=== PATIENT | female | born 1970 | race Two or more races ===

== ENCOUNTER 2020-06-08 19:19 | Outpatient (CLI) | payer MEDICAID | END 2020-06-08 19:20 | disposition home or self-care (01) | LOC: COV 19:19 | PROVIDERS: ATTEND Family Medicine | DX: R05 Cough (principal); R06.02 Shortness of breath; M79.10 Myalgia, unspecified site; R53.83 Other fatigue; R07.0 Pain in throat; R43.9 Unspecified disturbances of smell and taste; R09.81 Nasal congestion; J34.89 Other specified disorders of nose and nasal sinuses; Z20.822 Contact with and (suspected) exposure to COVID-19 ==

== ENCOUNTER 2020-06-18 17:16 | Emergency (ER) | payer MEDICAID ==
[2020-06-18] MEDS ORDERED: IBUPROFEN 600 MG TABLET PO STA (17:26)
[2020-06-18] MEDS ORDERED: oxyCODONE 5 MG TABLET PO STA (17:26)
--- NOTE | 2020-06-18 17:27 | ED Physician Documentation ---
PD HPI UPPER EXT INJURY - Stated complaint Stated Complaint: RT WRIST INJ - Chief complaint Chief Complaint: Trauma Ext - History obtained from History obtained from: Patient (She was running up a flight of stairs at home just prior to arrival and tripped and fell forward on an outstretched right hand injuring the right wrist with severe pain. No other injuries.) Review of Systems Constitutional: reports: Reviewed and negative Cardiac: reports: Reviewed and negative Respiratory: reports: Reviewed and negative PD PAST MEDICAL HISTORY - Present Medications Home Medications: Ambulatory Orders Medication Instructions Recorded Confirmed HYDROcod/ACETAM 5/325 [Honeydew 5/325] 1 - 2 tab PO Q6H PRN #10 tab 06/18/20 Ibuprofen [Motrin] 800 mg PO Q8H PRN #14 tab 06/18/20 Ondansetron Odt [Zofran] 4 mg TL Q6H PRN #10 tab 06/18/20 - Allergies Allergies/Adverse Reactions: Allergies Allergy/AdvReac Type Severity Reaction Status Date / Time morphine Allergy Respiratory Verified 06/18/20 17:21 PD ED PE NORMAL - Vitals Vital signs reviewed: Yes - General General: Alert and oriented X 3, Other (She is uncomfortable due to the wrist pain) - Neck Neck: Supple, no meningeal sign, No bony TTP - Extremities Extremities: Other (Potential deformity of the right wrist, quite tender over the right wrist without neurovascular compromise in the hand. Also some tenderness over the medial olecranon of the right elbow.) - Neuro Neuro: Alert and oriented X 3, Normal speech Results - Vitals Vitals: Vital Signs - 24 hr 06/18/20 06/18/20 17:19 18:21 Temperature 36.2 C L Heart Rate 72 75 Respiratory 16 16 Rate Blood Pressure 126/69 133/91 H O2 Saturation 95 98 Oxygen O2 Source Room air - Rads (name of study) R wrist/elbow XRs Radiology: EMP read contemporaneously (NAD) PD MEDICAL DECISION MAKING - ED course ED course: 49-year-old woman had a fall on outstretched right hand with wrist and elbow pain. Relevant x-rays were negative. Placed in a sling and a Velcro splint for comfort. Also got some Dilaudid here orally after declining oxycodone noting "it does not work for me, it is no different than taking aspirin." Departure - Departure Disposition: Home, Self Care Clinical Impression: Sprain of wrist, right Qualifiers: Encounter type: initial encounter Qualified Code(s): S63.501A - Unspecified sprain of right wrist, initial encounter Sprain of elbow, right Qualifiers: Encounter type: initial encounter Qualified Code(s): S53.401A - Unspecified sprain of right elbow, initial encounter Condition: Good Record reviewed to determine appropriate education?: Yes Instructions: ED Sprain Wrist Follow-Up: [facility] [Provider Group] - Within 1 week Prescriptions: Ibuprofen [Motrin] 800 mg PO Q8H PRN #14 tab PRN Reason: PAIN &/OR FEVER HYDROcod/ACETAM 5/325 [Honeydew 5/325] 1 - 2 tab PO Q6H PRN #10 tab PRN Reason: Pain Ondansetron Odt [Zofran] 4 mg TL Q6H PRN #10 tab PRN Reason: Nausea / Vomiting Comments: Wear the splint as needed for comfort, you can take it off though for washing and bathing etc. Also sleeping. Return if worsening. Follow-up with the orthopedics clinic in about a week for recheck, call the number listed on this form on Sunday for an appointment. Discharge Date/Time: 06/18/20 18:51
[2020-06-18] MEDS ORDERED: HYDROmorphone 2 MG TABLET PO STA (17:40)
--- NOTE | 2020-06-18 18:06 | XRAY Report ---
PROCEDURE: Wrist 4 View RT INDICATIONS: wrist/elbow inj TECHNIQUE: 4 views of the wrist were acquired. COMPARISON: None FINDINGS: Bones: No fractures or dislocations. No suspicious bony lesions. Scaphoid view: Scaphoid is intact. Soft tissues: No suspicious soft tissue calcifications. IMPRESSION: No fracture. No osseous lesion. If there are persistent symptoms or continued clinical concern for pa thology, then repeat plain film radiographs (7-10 days) or advanced imaging (CT, MR, bone scan) shoul d be considered for further evaluation. Reviewed by: Josefa Calvillo MD, PhD on 06/18/2020 6:05 PM PST Approved by: Josefa Calvillo MD, PhD on 06/18/2020 6:05 PM PST Station ID: [id number]
--- NOTE | 2020-06-18 18:06 | XRAY Report ---
PROCEDURE: Elbow 3 View RT INDICATIONS: wrist/elbow inj TECHNIQUE: 3 views of the elbow were acquired. COMPARISON: None FINDINGS: Bones: No fractures or dislocations. No suspicious bony lesions. Soft tissues: No elbow joint effusion. No suspicious soft tissue calcifications. IMPRESSION: No fracture. No osseous lesion. If there are persistent symptoms or continued clinical concern for pa thology, then repeat plain film radiographs (7-10 days) or advanced imaging (CT, MR, bone scan) shoul d be considered for further evaluation. Reviewed by: Josefa Calvillo MD, PhD on 06/18/2020 6:04 PM PST Approved by: Josefa Calvillo MD, PhD on 06/18/2020 6:04 PM PST Station ID: [id number]
[2020-06-18] MEDS ORDERED: ONDANSETRON ODT 4 MG TABLET TL STA (18:13)
[2020-06-18 18:23] VITALS: BP 133/91
== END 2020-06-18 18:51 | disposition home or self-care (01) ==
LOC: ED 17:16
DX: S63.501A Unspecified sprain of right wrist, initial encounter (principal); S53.401A Unspecified sprain of right elbow, initial encounter; W10.9XXA Fall (on) (from) unspecified stairs and steps, initial encounter; Y93.01 Activity, walking, marching and hiking; Y92.009 Unspecified place in unspecified non-institutional (private) residence as the place of occurrence of the external cause
CPT/HCPCS: 73080; 73110; 99283; 99284; A9270; Q0162

== ENCOUNTER 2020-07-02 08:00 | Outpatient (CLI) | payer OTHER, MEDICAID ==
--- NOTE | 2020-07-02 16:23 | XRAY Report ---
PROCEDURE: Wrist 4 View RT INDICATIONS: RIGHT WRIST PAIN TECHNIQUE: 4 views of the wrist were acquired. COMPARISON: 06/18/2020 FINDINGS: No fracture. Scattered subchondral sclerosis and spurring. Anatomic alignment. Soft tissues: No suspicious soft tissue calcifications. IMPRESSION: No fracture identified. No evidence of occult fracture. If the patient's pain or other symptoms persi st, consider further evaluation with MRI. Reviewed by: Darian Amador MD on 07/02/2020 4:22 PM PST Approved by: Darian Amador MD on 07/02/2020 4:22 PM PST Station ID: [id number]
== END 2020-07-02 23:59 | disposition home or self-care (01) ==
LOC: DI.N 08:00
PROVIDERS: ATTEND Physician Assistant
DX: M25.531 Pain in right wrist (principal); R56.9 Unspecified convulsions; N95.1 Menopausal and female climacteric states; G43.909 Migraine, unspecified, not intractable, without status migrainosus; F33.9 Major depressive disorder, recurrent, unspecified; F41.1 Generalized anxiety disorder; Z87.42 Personal history of other diseases of the female genital tract; Z87.11 Personal history of peptic ulcer disease; Z86.2 Personal history of diseases of the blood and blood-forming organs and certain disorders involving the immune mechanism; Z85.41 Personal history of malignant neoplasm of cervix uteri; Z80.42 Family history of malignant neoplasm of prostate; Z80.52 Family history of malignant neoplasm of bladder; Z83.71 Family history of colonic polyps
CPT/HCPCS: 36415; 81599; 82306; 82670; 83001; 83002; 84144; 84146; 84443; 85025

== ENCOUNTER 2020-07-02 14:37 | Outpatient (CLI) | payer OTHER, MEDICAID ==
[2020-07-02 18:18] LABS: BASOPHILS % (AUTO) 0.6 %; EOSINOPHILS # (AUTO) 0.1 10^3/uL (0.0-0.7); EOSINOPHILS % (AUTO) 2.3 %; HCT - HEMATOCRIT 38.8 % (37.0-47.0); HGB - HEMOGLOBIN 11.9 g/dL (12.0-16.0); LYMPHOCYTES # (AUTO) 1.6 10^3/uL (1.5-3.5); LYMPHOCYTES % (AUTO) 31.3 %; MEAN CORPUSCULAR HEMOGLOBIN 26.5 pg (27.0-31.0); MEAN CORPUSCULAR HGB CONC 30.7 g/dL (32.0-36.0); MEAN CORPUSCULAR VOLUME 86.4 fL (81.0-99.0); MEAN PLATELET VOLUME 10.6 fL (7.9-10.8); MONOCYTES # (AUTO) 0.3 10^3/uL (0.0-1.0); MONOCYTES % (AUTO) 5.4 %; NEUTROPHILS # (AUTO) 3.1 10^3/uL (1.5-6.6); NEUTROPHILS % (AUTO) 60.4 %; PLT - PLATELET COUNT 333 10^3/uL (130-450); RED BLOOD COUNT 4.49 10^6/uL (4.20-5.40); RED CELL DISTRIBUTION WIDTH 15.7 % (12.0-15.0); WHITE BLOOD COUNT 5.2 x10^3/uL (4.8-10.8)
[2020-07-02 18:54] LABS: THYROID STIMULATING HORMONE 1.95 uIU/mL (0.34-5.60)
[2020-07-02 19:00] LABS: PROLACTIN 4.61 ng/mL
[2020-07-02 19:22] LABS: FOLLICLE STIMULATING HORMONE 69.74 mIU/mL
[2020-07-02 19:23] LABS: LUTEINIZING HORMONE 31.62 mIU/mL
[2020-07-03 05:11] LABS: ESTRADIOL <15 pg/mL; PROGESTERONE <0.5 ng/mL
== END 2020-07-02 14:38 | disposition home or self-care (01) ==
LOC: LAB.N 14:37
PROVIDERS: ATTEND Physician Assistant
DX: R56.9 Unspecified convulsions (principal); N95.1 Menopausal and female climacteric states; Z78.0 Asymptomatic menopausal state; G43.909 Migraine, unspecified, not intractable, without status migrainosus; F33.9 Major depressive disorder, recurrent, unspecified; F41.1 Generalized anxiety disorder; Z85.41 Personal history of malignant neoplasm of cervix uteri; Z80.42 Family history of malignant neoplasm of prostate; Z80.52 Family history of malignant neoplasm of bladder; Z83.71 Family history of colonic polyps; Z87.42 Personal history of other diseases of the female genital tract; Z87.11 Personal history of peptic ulcer disease; Z86.2 Personal history of diseases of the blood and blood-forming organs and certain disorders involving the immune mechanism
CPT/HCPCS: 36415; 81599; 82306; 82670; 83001; 83002; 84144; 84146; 84443; 85025

== ENCOUNTER 2020-07-08 06:38 | Day surgery (SDC) | payer OTHER, MEDICAID ==
[2020-07-08] MEDS ORDERED: LACTATED RINGERS 1,000 ML IV ONE ×2 (07:12→09:22)
--- NOTE | 2020-07-08 08:55 | ANESTHESIA ---
Pre-Anesthesia VS, & Labs - Diagnosis screening colonoscopy - Procedure colonoscopy Vital Signs: Temp Pulse Resp BP Pulse Ox 36.3 C L 77 16 149/99 H 99 07/08/20 06:45 07/08/20 06:45 07/08/20 06:45 07/08/20 06:45 07/08/20 06:45 Height: 5 ft 1 in Weight (kg): 69.2 kg Body Mass Index: 28.8 BMI Classification: Overweight - NPO >8 hours - Is Patient ?: No Home Medications and Allergies Home Medications: Ambulatory Orders Fluoxetine HCl [Prozac] 30 mg PO DAILY 07/08/20 SUMAtriptan [Imitrex] 25 mg PO PRN PRN 07/08/20 Trazodone HCl 50 mg PO PRN PRN 07/08/20 Fluoxetine HCl [Prozac] 30 mg PO DAILY 07/08/20 SUMAtriptan [Imitrex] 25 mg PO PRN PRN 07/08/20 Trazodone HCl 50 mg PO PRN PRN 07/08/20 Allergies/Adverse Reactions: Allergies Allergy/AdvReac Type Severity Reaction Status Date / Time morphine Allergy Respiratory Verified 06/18/20 17:21 Anes History & Medical History - Anesthetic History Anesthesia Complications: reports: No previous complications - Medical History Cardiovascular: reports: None Pulmonary: reports: None Gastrointestinal: reports: Ulcers Urinary: reports: None Musculoskeletal: reports: Fatigue Endocrine/Autoimmune: reports: None Skin: reports: None - Surgical History General: reports: Cholecystectomy, Gastric surgery Gynecologic: reports: section, Hysterectomy, LEEP (Cervical surgery) Exam General: Alert Dental: WNL Mouth Opening: Greater than 4 Fingerbreadths Mallampati classification: II Thyromental Distance: greater than 6 cm Respiratory: Lungs clear Cardiovascular: Regular rate, Normal S1, Normal S2 Plan Anesthesia Type: Total IV Consent for Procedure(s) Verified and Reviewed: Yes Code Status: Attempt Resuscitation ASA classification: 2-Mild systemic disease Is this case an emergency?: No
[2020-07-08] MEDS ORDERED: LACTATED RINGERS 100 ML IV ONE (09:00)
[2020-07-08] MEDS ORDERED: ONDANSETRON 4 MG/2 ML VIAL ONE (09:17)
[2020-07-08] MEDS ORDERED: ACETAMINOPHEN 1,000 MG/100 ML 100 ML IV ONE ×2 (09:36→09:52)
[2020-07-08] MEDS ORDERED: METOCLOPRAMIDE 10 MG/2 ML VIAL ONE (09:38)
[2020-07-08 09:56] VITALS: BP 144/83
--- NOTE | 2020-07-08 15:01 | ANESTHESIA POST OP EVALUATION ---
Anesthesia Post Eval - Post Anesthesia Eval Vitals: Last Vital Signs Temp 37.3 C 07/08/20 09:55 Pulse 75 07/08/20 09:55 Resp 18 07/08/20 09:55 BP 144/83 H 07/08/20 09:55 Pulse Ox 97 07/08/20 09:55 CV Function Including HR & BP: positive: Stable Pain Control: positive: Satisfactory Nausea & Vomiting: positive: Negative Mental Status: positive: Patient Participates Respiratory Status: Airway Patent Hydration Status: Satisfactory Anesthesia Complications: positive: None
== END 2020-07-08 06:39 | disposition home or self-care (01) ==
LOC: SDS 06:38
PROVIDERS: ATTEND Surgery
DX: Z12.11 Encounter for screening for malignant neoplasm of colon (principal); Z80.0 Family history of malignant neoplasm of digestive organs; K57.30 Diverticulosis of large intestine without perforation or abscess without bleeding; F32.9 Major depressive disorder, single episode, unspecified; F41.9 Anxiety disorder, unspecified; G43.909 Migraine, unspecified, not intractable, without status migrainosus; E66.3 Overweight; Z68.28 Body mass index [BMI] 28.0-28.9, adult; Z79.899 Other long term (current) drug therapy; Z87.11 Personal history of peptic ulcer disease
CPT/HCPCS: 45378; J0131; J2765; J7120

== ENCOUNTER 2020-08-10 20:14 | Emergency (ER) | payer OTHER, MEDICAID ==
--- OUTSIDE RECORDS SUMMARY | 2020-08-10 20:18 | EXTERNAL MEDICAL SUMMARY RPT | Continuity of Care Document ---
:1970 Demographics Phone Unavailable Preferred Language Unknown Marital Status Unknown Mormon Affiliation Unknown Race Unknown Ethnic Group Unknown Author Organization [facility] Address [address] [phone] Phone Social History date description facility [phone]
--- OUTSIDE RECORDS SUMMARY | 2020-08-10 20:23 | EXTERNAL MEDICAL SUMMARY RPT | Continuity of Care Document ---
:1970 Demographics Phone Unavailable Preferred Language Unknown Marital Status Unknown Congregation Affiliation Unknown Race Unknown Ethnic Group Unknown Author Organization [facility] Address [address] [phone] Phone Social History date description facility [phone]
[2020-08-10 20:26] VITALS: BP 136/81
[2020-08-10] MEDS ORDERED: CHERRY SYRUP 10 ML UDC PO ONE (20:34)
[2020-08-10] MEDS ORDERED: DEXAMETHASONE 10 MG/ML VIAL PO STA (20:34)
--- NOTE | 2020-08-10 20:37 | ED Physician Documentation ---
History of Present Illness - Stated complaint Stated Complaint: EYE SWELLING - Chief complaint Chief Complaint: Heent - Additonal information Additional information: 49-year-old female presents to the emergency department for evaluation of 3 days redness and swelling under both of her eyes. She reports that she wakes up in the eyes are puffy and red. She endorses some generalized pruritus. No swelling of the upper lids. No pain with ocular movements. No recent cough cold or congestion. She has tried taking cetirizine and Benadryl to see if it would help with the redness and swelling but it has not. No new soaps lotions or face wash. She reports using a hypoallergenic face wash. She does have false eyelashes in the upper lids that were placed about 1 week ago and a glue was used. She has had this done many times in the past without reaction. No tongue or lip swelling. No chest pain or shortness of air. No dysphonia. No difficulty swallowing. Review of Systems Constitutional: denies: Fever, Chills Eyes: reports: Other (Swelling and erythema bilateral lower eyelids) Ears: reports: Reviewed and negative Nose: reports: Reviewed and negative Throat: reports: Reviewed and negative Cardiac: reports: Reviewed and negative Respiratory: reports: Reviewed and negative GI: reports: Reviewed and negative : reports: Reviewed and negative Skin: reports: Reviewed and negative PD PAST MEDICAL HISTORY - Past Medical History Past Medical History: Yes Cardiovascular: None Respiratory: None Neuro: None Endocrine/Autoimmune: None GI: Ulcers TELEVISION DIRECTOR: None : None HEENT: None Psych: Depression, Anxiety Musculoskeletal: Fatigue Derm: None - Past Surgical History Past Surgical History: Yes General: Cholecystectomy, Gastric surgery /TELEVISION DIRECTOR: section, Hysterectomy, LEEP (Cervical surgery) - Present Medications Home Medications: Ambulatory Orders Medication Instructions Recorded Confirmed Fluoxetine HCl [Prozac] 40 mg PO DAILY 07/08/20 08/10/20 - Allergies Allergies/Adverse Reactions: Allergies Allergy/AdvReac Type Severity Reaction Status Date / Time morphine Allergy Respiratory Verified 08/10/20 20:26 - Social History Does the pt smoke?: No Smoking Status: Never smoker Does the pt drink ETOH?: No Does the pt have substance abuse?: No - Immunizations Immunizations are current?: Yes - POLST Patient has POLST: No PD ED PE EXPANDED - General General: Alert, No acute distress, Well developed/nourished - HEENT HEENT: Atraumatic, PERRL, Moist mucous membranes, Pharynx normal, Other (Mild swelling and scant erythema bilateral lower eyelids. Extraocular movements intact. No eye pain with movement. No tenderness with palpation of either orbit.). No: Right frontal sinus TTP, Left frontal sinus TTP, Right maxillary sinus TTP, Left maxillary sinus TTP, Nasal congestion, Tonsillar exudate, Soft palate petecchiae, Dentition normal, Dental decay - Neck Neck: Supple w/out meningeal sx, No tenderness. No: Adenopathy - Cardiac Cardiac: Regular Rate, Radial strong equal, Pedal strong equal, Cap refill < 2 sec - Respiratory Respiratory: Clear to ausultation cuauhtemoc. No: Distress, Labored - Abdomen Abdomen: Normal Bowel sounds. No: Tender to palpation - Neuro Neuro: Alert and Oriented X 3, CNII-XII intact - GCS Eye Opening: Spontaneous Motor: Obeys Commands Verbal: Oriented Total: 15 Results - Vitals Vitals: Vital Signs - 24 hr 08/10/20 20:23 Temperature 36.4 C L Heart Rate 65 Respiratory 16 Rate Blood Pressure 136/81 H O2 Saturation 100 Oxygen O2 Source Room air PD MEDICAL DECISION MAKING - ED course Complexity details: re-evaluated patient, d/w patient ED course: 49-year-old female presents the emergency department for evaluation of 3 days bilateral lower eyelid swelling and very scant erythema with some associated pruritus. Failure to resolve despite taking cetirizine and Benadryl at home. On exam there is no cellulitis. It is not painful and there is no induration. I do suspect a mild allergic reaction. Patient was given a one-time dose of Decadron here in the emergency department and will be advised to continue with the Benadryl and cetirizine as an outpatient. emergent return precautiosn discussed Departure - Departure Disposition: 01 Home, Self Care Clinical Impression: Allergic reaction Qualifiers: Encounter type: initial encounter Qualified Code(s): T78.40XA - Allergy, unspecified, initial encounter Condition: Stable Record reviewed to determine appropriate education?: Yes Comments: You were seen in the emergency department today for swelling under both your eyelids. This is most likely a mild allergic reaction. I do recommend that you continue to take the cetirizine and Benadryl twice daily at home. You were given a one-time dose of a steroid called Decadron today in the emergency department that should help with the swelling over the next 12 to 48 hours. Please continue with the ice packs. If at any point you develop pain, swelling in the eyes it prevents you from opening the eyes fully, have pain when moving your eyes or develop any fevers please return immediately to the ER. I recommend that you discuss this ED visit with your primary care provider as soon as possible.
== END 2020-08-10 20:46 | disposition home or self-care (01) ==
LOC: ED 20:14
DX: T78.40XA Allergy, unspecified, initial encounter (principal)
CPT/HCPCS: 99282; 99284; A9270

== ENCOUNTER 2021-01-24 10:00 | Outpatient (CLI) | payer MEDICAID, OTHER | END 2021-01-24 23:59 | disposition home or self-care (01) | LOC: LAB.N 10:00 | PROVIDERS: ATTEND Physician Assistant Medical | DX: R05 Cough (principal); Z20.822 Contact with and (suspected) exposure to COVID-19 ==

== ENCOUNTER 2021-05-30 10:09 | Emergency (ER) | payer MEDICAID, OTHER ==
--- NOTE | 2021-05-30 11:05 | ED Physician Documentation ---
History of Present Illness - Stated complaint Stated Complaint: RT EAR PAIN - Chief complaint Chief Complaint: Heent - History obtained from History obtained from: Patient - Additonal information Additional information: The patient comes to the emergency department chief complaint of right ear pain for the last 4 days. She states that she has a history of recurrent right ear infections and has been on antibiotics many times for this. She was seen in the walk-in clinic 2 days ago and States they told her she may have otitis externa or she may have a ruptured tympanic membrane. They could not be sure she states, so she was put on both oral and topical antibiotics. However, the patient states she has not been using the eardrops. She states she has had some residue on her pillow every morning. The patient states she is having a lot of pain and it radiates into her right mandible as well as inferior to her ear and down into the side of her neck. No injury. She states she cannot hear very well out of the ear. No fevers; she states she is running "hot for her" which is in the "high 98's". No other complaints at this time. Review of Systems Ten Systems: 10 systems reviewed and negative Constitutional: reports: Reviewed and negative. denies: Fever, Chills Eyes: reports: Reviewed and negative Ears: reports: Reviewed and negative Nose: reports: Reviewed and negative Throat: reports: Reviewed and negative Cardiac: reports: Reviewed and negative Respiratory: reports: Reviewed and negative GI: reports: Reviewed and negative : reports: Reviewed and negative Skin: reports: Reviewed and negative Musculoskeletal: reports: Reviewed and negative Neurologic: reports: Reviewed and negative Psychiatric: reports: Reviewed and negative Endocrine: reports: Reviewed and negative Immunocompromised: reports: Reviewed and negative PD PAST MEDICAL HISTORY - Past Medical History Cardiovascular: None Respiratory: None Neuro: None Endocrine/Autoimmune: None GI: Ulcers RUBY DEVELOPER: None : None HEENT: None Psych: Depression, Anxiety Musculoskeletal: Fatigue Derm: None - Past Surgical History Past Surgical History: Yes General: Cholecystectomy, Gastric surgery /RUBY DEVELOPER: section, Hysterectomy, LEEP (Cervical surgery) - Present Medications Home Medications: Ambulatory Orders Medication Instructions Recorded Confirmed Fluoxetine HCl [Prozac] 40 mg PO DAILY 07/08/20 08/10/20 HYDROcod/ACETAM 5/325 [Alpine 5/325] 1 - 2 tablet PO Q6H PRN #14 tablet 05/30/21 Ondansetron Odt [Zofran] 4 mg TL Q6H PRN #10 tablet 05/30/21 - Allergies Allergies/Adverse Reactions: Allergies Allergy/AdvReac Type Severity Reaction Status Date / Time morphine Allergy Respiratory Verified 05/30/21 10:19 - Social History Does the pt smoke?: No Smoking Status: Never smoker Does the pt drink ETOH?: No Does the pt have substance abuse?: No - Immunizations Immunizations are current?: Yes - POLST Patient has POLST: No PD ED PE NORMAL - Vitals Vital signs reviewed: Yes - General General: Alert and oriented X 3, No acute distress, Well developed/nourished - HEENT HEENT: Atraumatic, PERRL, EOMI, Moist mucous membranes, Other - Cardiac Cardiac: RRR, No murmur - Respiratory Respiratory: Clear bilaterally - Abdomen Abdomen: Normal bowel sounds, Soft, Non tender, Non distended - Derm Derm: Warm and dry - Extremities Extremities: No deformity - Neuro Neuro: Alert and oriented X 3 - Psych Psych: Normal mood, Normal affect PD ED PE EXPANDED - Free text exam Free text exam: Ear exam: External auditory canal normal on right. No edema, sloughing, exudate, or discharge. No debris. Tympanic membrane is intact without rupture and is nonerythematous. There is no bulging, thickening, loss of cone of light, or distortion of any kind. There does appear to be some fluid behind the TM. No erythema or lymphadenopathy surrounding the ear. No mass in the neck. Mild tenderness over the mastoids. No edema of the gingiva. No dental laxity or fracture. Full range of motion of TMJ on the right without clicking. No facial swelling. No erythema or induration of the face or anywhere around the ear. Results - Vitals Vitals: Vital Signs - 24 hr 05/30/21 05/30/21 10:14 12:53 Temperature 36.8 C 36.8 C Heart Rate 73 70 Respiratory 18 16 Rate Blood Pressure 158/110 H 130/90 H O2 Saturation 97 98 Oxygen O2 Source Room air - Rads (name of study) Head CT Radiology: Final report received, EMP read indepedently, See rad report (Negative) PD MEDICAL DECISION MAKING - ED course Complexity details: reviewed results, re-evaluated patient, considered differential, d/w patient ED course: The patient had requested IV antibiotics and I stated to her that at this point, I do not find evidence of infection at all, and certainly not when requiring IV antibiotics. I cannot speak for what the practitioner of the walk-in clinic saw a couple of days ago, but at this point in time, there is no evidence of infection grossly on my exam. I have sent her for a CT to take a look at her mastoids, but I would code any mass or lymphadenopathy or any other evidence of anything to explain the degree of pain and tenderness the patient has. The patient was found to be feeling a little better after symptomatic treatment. Her CT Had was unremarkable, and I felt she was stable for discharge. We have discussed that she will continue the antibiotics until done with the course. She has prescriptions for Zofran and hydrocodone that I have sent to the pharmacy for her, which she may use for symptomatic treatment. We have discussed the need for follow-up and the usual indications for return. Departure - Departure Disposition: 01 Home, Self Care Clinical Impression: Acute otalgia Qualifiers: Laterality: right Qualified Code(s): H92.01 - Otalgia, right ear Condition: Stable Instructions: ED Otitis Media Serous Adult Prescriptions: HYDROcod/ACETAM 5/325 [Alpine 5/325] 1 - 2 tablet PO Q6H PRN #14 tablet PRN Reason: Pain Ondansetron Odt [Zofran] 4 mg TL Q6H PRN #10 tablet PRN Reason: Nausea / Vomiting Comments: There is no evidence of infection whatsoever in your ear, either in the external canal or the middle ear. You do have some fluid behind your eardrum, and this may be exerting some pressure on the eardrum, which can cause pain, sometimes even severely so. Your CT scan looks good. There is no indication for IV antibiotics at this time. Since you are already on oral antibiotics, we will have you finish the course, but at this point in time either an infection that you did have is getting better, or there is no infection at all. Please follow- up with your primary care physician to discuss referral to the ear nose throat specialist if you continue to have ear pain without a clear-cut cause. You may take the medication for nausea and pain as needed, in the meantime, to help your symptoms. Your prescriptions have been electronically transmitted to [facility] pharmacy in [place]. Discharge Date/Time: 05/30/21 12:53
[2021-05-30] MEDS: HYDROcod/ACETAM 5/325 MG TABLET PO STA (11:26)
[2021-05-30] MEDS: ONDANSETRON 4 MG/2 ML VIAL IM STA (11:26)
[2021-05-30] MEDS: KETOROLAC 60 MG/2 ML VIAL IM STA (11:26)
[2021-05-30] MEDS: predniSONE 20 MG TABLET PO STA (11:27)
--- NOTE | 2021-05-30 12:04 | CT Report ---
PROCEDURE: HEAD WO INDICATIONS: Mastoid pain/tenderness TECHNIQUE: Noncontrast 4.5 mm thick angled axial sections acquired from the foramen magnum to the vertex. For r adiation dose reduction, the following was used: automated exposure control, adjustment of mA and/or kV according to patient size. COMPARISON: None. FINDINGS: Image quality: Excellent. CSF spaces: Basal cisterns are patent. No extra-axial fluid collections. Ventricles are normal in size and shape. Brain: No midline shift. No intracranial masses or hemorrhage. Capps-white matter interface is norm al. Skull and face: Calvarium and visualized facial bones are intact, without suspicious lesions. Sinuses: Visualized portions of the mastoid air cells are clear (portion of the inferior left mastoid tip is excluded from the [id number]. No soft tissue inflammatory changes surrounding the visualiz ed portions of the mastoids. Paranasal sinuses are clear. IMPRESSION: No acute intracranial finding. No unenhanced CT findings of mastoiditis. Reviewed by: Kin Diaz MD on 05/30/2021 12:03 PM PST Approved by: Kin Diaz MD on 05/30/2021 12:03 PM PST Station ID: [id number]
[2021-05-30 12:54] VITALS: BP 130/90
== END 2021-05-30 12:53 | disposition home or self-care (01) ==
LOC: ED 10:09
DX: H92.01 Otalgia, right ear (principal)
CPT/HCPCS: 70450; 96372; 99283; 99284; J7512

== ENCOUNTER 2021-09-09 09:46 | Outpatient (CLI) | payer MEDICAID, OTHER ==
[2021-09-09 11:48] LABS: BASOPHILS % (AUTO) 0.3 %; EOSINOPHILS # (AUTO) 0.1 10^3/uL (0.0-0.7); EOSINOPHILS % (AUTO) 1.9 %; HCT - HEMATOCRIT 35.1 % (37.0-47.0); HGB - HEMOGLOBIN 10.5 g/dL (12.0-16.0); LYMPHOCYTES # (AUTO) 1.6 10^3/uL (1.5-3.5); LYMPHOCYTES % (AUTO) 27.5 %; MEAN CORPUSCULAR HEMOGLOBIN 24.1 pg (27.0-31.0); MEAN CORPUSCULAR HGB CONC 29.9 g/dL (32.0-36.0); MEAN CORPUSCULAR VOLUME 80.5 fL (81.0-99.0); MONOCYTES # (AUTO) 0.4 10^3/uL (0.0-1.0); MONOCYTES % (AUTO) 7.2 %; NEUTROPHILS # (AUTO) 3.7 10^3/uL (1.5-6.6); NEUTROPHILS % (AUTO) 62.6 %; PLT - PLATELET COUNT 397 10^3/uL (130-450); RED BLOOD COUNT 4.36 10^6/uL (4.20-5.40); WHITE BLOOD COUNT 5.9 x10^3/uL (4.8-10.8)
[2021-09-09 12:28] LABS: % IRON SATURATION 6 % (20-50); IRON 26 ug/dL (28-170); TOTAL IRON BINDING CAPACITY 470 ug/dL (250-450); TRANSFERRIN 336 mg/dL (192-382)
[2021-09-09 12:35] LABS: FERRITIN 4.4 ng/mL (11.0-306.8)
[2021-09-09 12:39] LABS: FOLATE 14.18 ng/mL (5.90 - >24.8)
== END 2021-09-09 09:47 | disposition home or self-care (01) ==
LOC: LAB.N 09:46
PROVIDERS: ATTEND Registered Nurse
DX: G25.81 Restless legs syndrome (principal)
CPT/HCPCS: 36415; 82607; 82728; 82746; 83540; 84466; 85025

== ENCOUNTER 2021-10-04 08:00 | Outpatient (CLI) | payer OTHER, MEDICAID ==
--- NOTE | 2021-10-05 10:38 | XRAY Report ---
PROCEDURE: Lumbar Spine 2 View INDICATIONS: STRAIN OF MUSCLE, FASCIA, AND TENDON OF LOWER BACK TECHNIQUE: 3 views of the lumbar spine were acquired. COMPARISON: None. FINDINGS: Bones: 5 [id number] vertebrae are present. There is normal bony alignment. No vertebral body compression fractures. No suspicious bony lesions. Disc space narrowing and hypertrophic facet join ts noted in the lower lumbar spine. Grade 2 anterior spinal listhesis present at L4-5. Soft tissues: Overlying bowel gas pattern is normal. No suspicious soft tissue calcifications. Melvin gical clips present in the right upper quadrant IMPRESSION: 1. Moderate degenerative disc disease and arthropathy lower lumbar spine 2. Grade 2 anterior spinal listhesis L4-5 Reviewed by: Colten Arevalo MD on 10/04/2021 5:01 PM CHADD Approved by: Colten Arevalo MD on 10/04/2021 5:01 PM CHADD Station ID: [id number]
== END 2021-10-04 23:59 | disposition home or self-care (01) ==
LOC: DI.N 08:00
PROVIDERS: ATTEND Physician Assistant
DX: S39.012A Strain of muscle, fascia and tendon of lower back, initial encounter (principal); M47.816 Spondylosis without myelopathy or radiculopathy, lumbar region; M43.16 Spondylolisthesis, lumbar region

== ENCOUNTER 2021-10-18 07:54 | Emergency (ER) | payer OTHER, MEDICAID ==
--- NOTE | 2021-10-18 08:09 | ED Physician Documentation ---
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 Has pain with movment and palpation. Seen at walk in with lumbar xrays that were normal. Rx with diclofenac and then Meloxicam without much improvement. Had Robaxin added as well.), Still present Location: Lower (lumbar/sacral area) Quality: Pain, Sharp Associated symptoms: No: Fever, Weakness, Numbness, Incontinent of urine Improves with: Rest. No: Meds Worsened by: Movement, Palpation Contributing factors: Twisting, Trauma Similar symptoms before: Has not had sx before Recently seen: Clinic (walk in 2 weeks ago) Review of Systems Constitutional: denies: Fever, Chills Nose: denies: Rhinorrhea / runny nose, Congestion Throat: denies: Sore throat Respiratory: denies: Cough GI: denies: Abdominal Pain, Nausea, Vomiting, Constipation, Diarrhea : denies: Dysuria, Incontinent Skin: denies: Abrasion (s), Laceration (s) Neurologic: denies: Focal weakness, Numbness PD PAST MEDICAL HISTORY - Past Medical History Past Medical History: Yes Cardiovascular: None Respiratory: None Neuro: Migraines Endocrine/Autoimmune: None GI: Ulcers, 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 HEENT: None Psych: Depression, Anxiety Musculoskeletal: Fatigue Derm: Eczema - Past Surgical History Past Surgical History: Yes General: Cholecystectomy, Gastric surgery /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 AND 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: section, Hysterectomy, LEEP (Cervical surgery) - Present Medications Home Medications: Ambulatory Orders Medication Instructions Recorded Confirmed Cetirizine [ZyrTEC] 10 mg PO BID #20 tablet 10/18/21 Meloxicam [Mobic] 7.5 mg PO BID 10 Days #14 tablet 10/18/21 Meloxicam, Submicronized 15 mg PO DAILY PRN 10/18/21 10/18/21 [Meloxicam] oxyCODONE [Roxicodone] 5 mg PO Q6H PRN #15 tablet 10/18/21 - Allergies Allergies/Adverse Reactions: Allergies Allergy/AdvReac Type Severity Reaction Status Date / Time morphine Allergy Respiratory Verified 10/18/21 08:00 - Social History Does the pt smoke?: No Smoking Status: Never smoker Does the pt drink ETOH?: No Does the pt have substance abuse?: No - Immunizations Immunizations are current?: Yes - POLST Patient has POLST: No PD ED PE NORMAL - Vitals Vital signs reviewed: Yes - General General: Alert and oriented X 3, Well developed/nourished, Other (appears in pain with low back movement and walking. ) - Abdomen Abdomen: Soft, Non tender - Back Back: No CVA TTP, No spinal TTP, Other (she is not tender lumbar but is actually tender to percussiona nd palpation at lower to mid sacral area. No redness. No rash. ) - Derm Derm: Normal color, Warm and dry, No rash Results - Vitals Vitals: Vital Signs - 24 hr 10/18/21 10/18/21 10/18/21 08:02 08:17 10:51 Temperature 36.6 C Heart Rate 76 75 80 Respiratory 18 18 14 Rate Blood Pressure 142/98 H 147/76 H 129/79 O2 Saturation 99 99 99 Oxygen O2 Source Room air - Rads (name of study) pelvic CT Radiology: Prelim report reviewed (age indeterminate sacral fracture, minimally displaced. ), See rad report PD MEDICAL DECISION MAKING - ED course Complexity details: reviewed results (recent lumbar xray was okay with just Gr 2 spondylo at L4-5. No fractures. Her pain is more at mid to lower sacral area though, so will get Pelvic CT. This showed sacral fracture. ), considered differential (fall with injury to sacral area. Had had lumbar xrays normal (essentially with Gr 2 spondyl at L4-5, so not consequential). Did not have sacral imaging. Given persistent degree of pain 2 weeks later, opted for pelvic imaging, which showed sacral fracture. ), d/w patient Departure - Departure Disposition: 01 Home, Self Care Clinical Impression: Accidental fall, Sacral fracture, closed Condition: Stable Record reviewed to determine appropriate education?: Yes Instructions: ED Fx Pelvis Follow-Up: Dinora Ford ARNP [Primary Care Provider] - Prescriptions: Meloxicam [Mobic] 7.5 mg PO BID 10 Days #14 tablet oxyCODONE [Roxicodone] 5 mg PO Q6H PRN #15 tablet PRN Reason: Pain Cetirizine [ZyrTEC] 10 mg PO BID #20 tablet Comments: Your CT scan shows sacral/coccygeal fracture. This typically will hurt the most for the first 2 to 3 weeks and take about 4 to 6 weeks for healing. There may be some residual pain for even 2 to 3 months. There may be still some inflammatory component so continuing the meloxicam (most recent NSAID) for another 1 or 2 weeks seems appropriate. To that add acetaminophen 4 times daily regularly. Physical therapy to the area may be useful, contact your primary care and see if they would initiate that (order it) for you. Use cetirizine or Claritin twice daily for the next 1 to 2 weeks to try to minimize any itching/histamine response to pain medication. Use the oxycodone every 6-8 hours if needed for worse pain in particular at night etc. You can use Benadryl 20 to 30 minutes prior to it as well to mitigate the symptoms. No prolonged walking or physical activity for another 1 or 2 weeks. Follow-up with your primary care. I sent your prescriptions to [facility] pharmacy in [place]. I am prescribing a short course of narcotic pain medication for you. These are potentially dangerous and addictive medications that should be used carefully. These medications may constipate you. Take an ukda-tmf-zxauhsh stool softener such as docusate twice daily with plenty of water while taking these medications. If you go 24 hours without a bowel movement, take wqhr-bgo-znzsgss MiraLAX, per package instructions. Do not drink or drive while taking these medications. If you received narcotic or sedating medications while in the emergency department do not drive for 24 hours. Store this medication in a safe, secure place and out of reach of children. It is a violation of federal law to give or sell this medication to another person or to use in a manner other than prescribed. The ED will not refill narcotic prescriptions, including prescriptions lost or stolen. You can dispose of unwanted medications at the [facility]'s office or at several pharmacies such as [facility]. Forms: Activity restrictions Discharge Date/Time: 10/18/21 10:54
[2021-10-18] MEDS ORDERED: KETOROLAC 30 MG/ML VIAL IM STA (08:31)
[2021-10-18] MEDS ORDERED: ACETAMINOPHEN 325 MG TABLET PO STA (08:32)
[2021-10-18] MEDS ORDERED: tiZANidine 4 MG TABLET PO STA (08:32)
--- NOTE | 2021-10-18 09:23 | CT Report ---
PROCEDURE: PELVIS WO INDICATIONS: fall with injury sacral area TECHNIQUE: Noncontrast 3 mm axial sections acquired through the bony pelvis, with coronal and sagittal reformatt ing. For radiation dose reduction, the following was used: automated exposure control, adjustment of mA and/or kV according to patient size. COMPARISON: None. FINDINGS: Image quality: Excellent. Bones: Slightly offset involving lower sacrum/upper coccyx is seen which may indicate age-indetermin ate fracture in this area. No other fracture or dislocation is seen. Pelvic ring is intact. Mild oste oarthritic changes are seen in bilateral hip joints, sacroiliac joints and symphysis pubis. No eviden ce of avascular necrosis of femoral head. Mild degenerative disc disease and bilateral facet arthrosi s in visualized lower lumbar spine is seen. Soft tissues: No gross presacral soft tissue abnormality. No pelvic free fluid of free air. Bowel wa ll thickness is normal. Bladder wall thickness is normal. Appendix is visualized and is within normal limits. No pelvic lymphadenopathy. No inguinal hernia. No gross muscle or soft tissue abnormality. IMPRESSION: 1. Age indeterminant slightly displaced fracture involving lower sacrum/upper coccyx. No other pelvic fracture or dislocation is seen. Mild osteoarthritic changes throughout the bony pelvis. Mild degene rative disc disease in lower lumbar spine. No evidence of avascular necrosis of femoral head. 2. No gross pelvic soft tissue abnormality. No free fluid of free air. Reviewed by: Terrell Perkins MD on 10/18/2021 9:22 AM PDT Approved by: Terrell Perkins MD on 10/18/2021 9:22 AM PDT Station ID: [id number]
[2021-10-18 10:52] VITALS: BP 129/79
== END 2021-10-18 10:54 | disposition home or self-care (01) ==
LOC: ED 07:54
DX: S32.15XA Type 2 fracture of sacrum, initial encounter for closed fracture (principal); W10.9XXA Fall (on) (from) unspecified stairs and steps, initial encounter; Y99.0 Civilian activity done for income or pay
CPT/HCPCS: 72192; 99283; 99284; A9270

== ENCOUNTER 2022-03-13 11:22 | Outpatient (CLI) | payer MEDICAID ==
[2022-03-13 17:43] LABS: BASOPHILS % (AUTO) 0.5 %; EOSINOPHILS # (AUTO) 0.1 10^3/uL (0.0-0.7); EOSINOPHILS % (AUTO) 1.2 %; HCT - HEMATOCRIT 34.8 % (37.0-47.0); HGB - HEMOGLOBIN 10.4 g/dL (12.0-16.0); LYMPHOCYTES # (AUTO) 2.4 10^3/uL (1.5-3.5); LYMPHOCYTES % (AUTO) 36.7 %; MEAN CORPUSCULAR HGB CONC 29.9 g/dL (32.0-36.0); MONOCYTES # (AUTO) 0.5 10^3/uL (0.0-1.0); MONOCYTES % (AUTO) 6.9 %; NEUTROPHILS # (AUTO) 3.6 10^3/uL (1.5-6.6); NEUTROPHILS % (AUTO) 54.5 %; PLT - PLATELET COUNT 400 10^3/uL (130-450); RED BLOOD COUNT 4.52 10^6/uL (4.20-5.40); RED CELL DISTRIBUTION WIDTH 19.1 % (12.0-15.0); WHITE BLOOD COUNT 6.6 x10^3/uL (4.8-10.8)
[2022-03-13 18:38] LABS: ALBUMIN 3.8 g/dL (3.2-5.5); ALKALINE PHOSPHATASE 79 IU/L (42-121); ALT ALANINE AMINOTRANSFERASE 17 IU/L (10-60); AST ASPARTATE AMINOTRANSFERASE 20 IU/L (10-42); BILIRUBIN,TOTAL 0.3 mg/dL (0.2-1.0); BUN - BLOOD UREA NITROGEN 16 mg/dL (6-20); CALCIUM 9.3 mg/dL (8.5-10.3); CARBON DIOXIDE - CO2 28 mmol/L (21-32); CHLORIDE 102 mmol/L (101-111); CHOL/HDL RATIO 2.7 (<4.4); CHOLESTEROL 183 mg/dL; CREATININE 0.6 mg/dL (0.4-1.0); GFR - MDRD 106 (>89); GLUCOSE 87 mg/dL (70-100); HDL CHOLESTEROL 69 mg/dL; LDL CHOLESTEROL,CALCULATED 99 mg/dL; LDL/HDL RATIO 1.4 (<4.4); POTASSIUM 3.9 mmol/L (3.5-5.0); SODIUM 137 mmol/L (135-145); TOTAL PROTEIN 7.5 g/dL (6.7-8.2); TRIGLYCERIDES 75 mg/dL; VLDL CHOLESTEROL 15 mg/dL
[2022-03-13 18:46] LABS: THYROID STIMULATING HORMONE 3.14 uIU/mL (0.34-5.60)
== END 2022-03-13 11:23 | disposition home or self-care (01) ==
LOC: LAB.N 11:22
PROVIDERS: ATTEND Nurse Practitioner Family
DX: I10 Essential (primary) hypertension (principal); R40.0 Somnolence; E55.9 Vitamin D deficiency, unspecified; E66.9 Obesity, unspecified
CPT/HCPCS: 36415; 80053; 80061; 82306; 83721; 84443; 85025

== ENCOUNTER 2022-03-20 11:37 | Emergency (ER) | payer MEDICAID ==
[2022-03-20 11:54] VITALS: BP 154/97
--- OUTSIDE RECORDS SUMMARY | 2022-03-20 11:54 | EXTERNAL MEDICAL SUMMARY RPT | Continuity of Care Document ---
:1970 Author Organization [facility] Address [address] [id number] Phone Allergies No information. Encounters No information. Functional Status No information. Immunizations No information. Medications No information. Problems No information. Procedures No information. Results/Labs test date author facility value unit interpret ation Result panel 1 (unknown) (no (unknown) (unknown) (no value) (units (unk nown) date) unknown) (unknown) (no (unknown) (unknown) [id number] (units (unkno wn) date) unknown) (unknown) (no (unknown) (unknown) 01/06/22 (units (unkno wn) date) unknown) (unknown) (no (unknown) (unknown) 1. Multilevel (units ( unknown) date) degenerative disc unknown) and facet disease, as well as ligamentum flavum (unknown) (no (unknown) (unknown) [address] [place] [address] (units (unknown) date) unknown) (unknown) (no (unknown) (unknown) 16:10. (units (unkno wn) date) unknown) (unknown) (no (unknown) (unknown) 2. Mild (units (unkno wn) date) multilevel canal unknown) stenoses. Multilevel foraminal stenoses, worst at L4 (unknown) (no (unknown) (unknown) Accession Number: (units (unknown) date) [id number] unknown) (unknown) (no (unknown) (unknown) Age/Sex: 51 / F (units (unknown) date) Date of Service: unknown) (unknown) (no (unknown) (unknown) Alignment and (units ( unknown) date) Curvature: 5 unknown) lumbar type vertebral bodies are present by plain (unknown) (no (unknown) (unknown) DALIA Barron (units ( unknown) date) [id number] unknown) (unknown) (no (unknown) (unknown) Approved by: (units (u nknown) date) Raysa Gillette M.D. unknown) on 01/06/2022 at 16:58 (unknown) (no (unknown) (unknown) Bone Marrow: (units (u nknown) date) Marrow is of unknown) normal overall signal. No acute vertebral body (unknown) (no (unknown) (unknown) COMPARISON: [facility] (units (unknown) date) Outside Film, CR, unknown) XR LUMBAR SPINE 2 OR 3 VIEWS, 10/04/2021, (unknown) (no (unknown) (unknown) Caution: Report (units (unknown) date) not yet finalized unknown) and possibly incomplete! (unknown) (no (unknown) (unknown) : 1970 (units (unknown) date) Acct:[id number] unknown) (unknown) (no (unknown) (unknown) Dictated by: (units (u nknown) date) Raysa Gillette M.D. unknown) on 01/06/2022 at 16:33 (unknown) (no (unknown) (unknown) Draft (units (unkno wn) date) unknown) (unknown) (no (unknown) (unknown) FINDINGS: (units (unkn own) date) unknown) (unknown) (no (unknown) (unknown) IMPRESSION: (units (un known) date) unknown) (unknown) (no (unknown) (unknown) INDICATIONS: LOW (units (unknown) date) BACK PAIN unknown) (unknown) (no (unknown) (unknown) Image quality: (units (unknown) date) Excellent. unknown) (unknown) (no (unknown) (unknown) [facility] (units (unknown) date) unknown) (unknown) (no (unknown) (unknown) L1-L2: Normal (units ( unknown) date) appearance. unknown) (unknown) (no (unknown) (unknown) L2-L3: Mild facet (units (unknown) date) and ligamentum unknown) flavum hypertrophy. Mild epidural (unknown) (no (unknown) (unknown) L3-L4: Mild disc (units (unknown) date) desiccation and unknown) diffuse disc bulge. Mild facet and (unknown) (no (unknown) (unknown) L4-L5: Moderate (units (unknown) date) disc desiccation. unknown) Mild disc height loss and diffuse disc (unknown) (no (unknown) (unknown) L5 where (units (unkno wn) date) unknown) (unknown) (no (unknown) (unknown) L5-S1: Mild (units (un known) date) diffuse disc unknown) bulge. Moderate bilateral facet hypertrophy. Mild (unknown) (no (unknown) (unknown) Loc: MRI (units (unkno wn) date) unknown) (unknown) (no (unknown) (unknown) Magnetic (units (unkno wn) date) Resonance Report unknown) (unknown) (no (unknown) (unknown) Moderate facet (units (unknown) date) hypertrophy. Mild unknown) ligamentum flavum hypertrophy. Mild epidural (unknown) (no (unknown) (unknown) Noncontrast (units (un known) date) sagittal T1 spin unknown) echo and T2 fast echo, sagittal STIR, and T2 fast (unknown) (no (unknown) (unknown) Ordering (units (unkno wn) date) Provider: unknown) Carlos Martinez MD (unknown) (no (unknown) (unknown) PROCEDURE: MR (units ( unknown) date) LUMBAR SPINE WO unknown) CON (unknown) (no (unknown) (unknown) Paraspinous Soft (units (unknown) date) Tissues: No unknown) paravertebral masses. (unknown) (no (unknown) (unknown) Patient: (units (unkno wn) date) Mariah Robertson M unknown) MR#: [id number] (unknown) (no (unknown) (unknown) Procedure: MR (units ( unknown) date) lumbar spine wo unknown) con (unknown) (no (unknown) (unknown) Signed (units (unkno wn) date) unknown) (unknown) (no (unknown) (unknown) Spinal Cord: (units (u nknown) date) Conus medullaris unknown) terminates at the mid L2 level. Visualized cord (unknown) (no (unknown) (unknown) T12-L1: Normal (units (unknown) date) appearance. unknown) (unknown) (no (unknown) (unknown) TECHNIQUE: (units (unk nown) date) unknown) (unknown) (no (unknown) (unknown) Transcribed by: (units (unknown) date) SUBHASH on 01/06/2022 unknown) at 16:39 (unknown) (no (unknown) (unknown) bulge. (units (unkno wn) date) unknown) (unknown) (no (unknown) (unknown) canal (units (unkno wn) date) unknown) (unknown) (no (unknown) (unknown) compression (units (un known) date) unknown) (unknown) (no (unknown) (unknown) demonstrates (units (u nknown) date) normal signal and unknown) size. (unknown) (no (unknown) (unknown) diffuse disc (units (u nknown) date) bulge. Mild canal unknown) stenosis. Mild bilateral foraminal stenosis. (unknown) (no (unknown) (unknown) film. 7 mm (units (unk nown) date) unknown) (unknown) (no (unknown) (unknown) foraminal (units (unkn own) date) unknown) (unknown) (no (unknown) (unknown) fractures. Mild (units (unknown) date) reactive signal unknown) throughout the endplates of the thoracolumbar (unknown) (no (unknown) (unknown) hypertrophy and (units (unknown) date) epidural unknown) lipomatosis. (unknown) (no (unknown) (unknown) hypertrophy. Mild (units (unknown) date) epidural unknown) lipomatosis. Mild canal stenosis. Mild bilateral (unknown) (no (unknown) (unknown) ligamentum flavum (units (unknown) date) unknown) (unknown) (no (unknown) (unknown) lipomatosis. Mild (units (unknown) date) canal stenosis. unknown) Moderate bilateral foraminal stenosis. (unknown) (no (unknown) (unknown) lipomatosis. Mild (units (unknown) date) unknown) (unknown) (no (unknown) (unknown) may be performed. (units (unknown) date) unknown) (unknown) (no (unknown) (unknown) of (units (unkno wn) date) anterolisthesis of unknown) L4 on L5. (unknown) (no (unknown) (unknown) spin echo (units (unkn own) date) unknown) (unknown) (no (unknown) (unknown) spine. (units (unkno wn) date) unknown) (unknown) (no (unknown) (unknown) stenosis. Mild (units (unknown) date) bilateral unknown) foraminal stenosis. (unknown) (no (unknown) (unknown) stenosis. (units (unkn own) date) unknown) (unknown) (no (unknown) (unknown) there are (units (unkn own) date) moderate foraminal unknown) stenoses. (unknown) (no (unknown) (unknown) through the (units (un known) date) lumbar spine. In unknown) cases with scoliosis, additional coronal T2 fast Social History No information. Vital Signs No information.
[2022-03-20] MEDS ORDERED: HYDROmorphone 1 MG/ML CARPUJECT IM STA (14:53)
[2022-03-20] MEDS ORDERED: CHERRY SYRUP 10 ML UDC PO ONE (14:53)
[2022-03-20] MEDS ORDERED: KETOROLAC 30 MG/ML VIAL IM STA (14:53)
[2022-03-20] MEDS ORDERED: ONDANSETRON ODT 4 MG TABLET TL STA (14:53)
[2022-03-20] MEDS ORDERED: DEXAMETHASONE 10 MG/ML VIAL PO STA (14:53)
--- NOTE | 2022-03-20 15:05 | ED Physician Documentation ---
PD HPI BACK PAIN - Stated complaint Stated Complaint: BACK PX - Chief complaint Chief Complaint: Back Pain - History obtained from History obtained from: Patient - History of Present Illness Timing - onset: How many weeks ago (Several days) Timing - duration: Days (Several days) Timing - details: Gradual onset Pain level max: 8 Pain level now: 8 Location: Lower, Right, Left Quality: Pain, Similar to prior episodes Associated symptoms: No: Fever, Weakness, Numbness, Incontinent of urine, Unable to urinate, Hematuria, Incontinent of stool Improves with: Rest Worsened by: Movement Contributing factors: No: Lifting, Twisting, Trauma, Anticoagulated, Cancer, IVDA Recently seen: Not recently seen - Additional information Additional information: Patient is a 51-year-old female who states that she has a longstanding history of spinal stenosis. She states that she is having increasing back pain. Does not recall any specific injury. No loss of bowel or bladder control. Pain is nonradiating. Worse with movement, better with rest. Denies any possibility of . No fevers. No chills. No trauma. 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 HEENT: None Psych: Depression, Anxiety Musculoskeletal: Fatigue Derm: Eczema - Past Surgical History Past Surgical History: Yes General: Cholecystectomy, Gastric surgery /TIME CLERK: section, Hysterectomy, LEEP (Cervical surgery) - Present Medications Home Medications: Ambulatory Orders Medication Instructions Recorded Confirmed Cetirizine [ZyrTEC] 10 mg PO BID #20 tablet 10/18/21 Meloxicam [Mobic] 7.5 mg PO BID 10 Days #14 tablet 10/18/21 Meloxicam, Submicronized 15 mg PO DAILY PRN 10/18/21 10/18/21 [Meloxicam] oxyCODONE [Roxicodone] 5 mg PO Q6H PRN #15 tablet 10/18/21 HYDROmorphone [Dilaudid] 2 mg PO Q6H PRN #12 tablet 03/20/22 Ketorolac [Toradol] 10 mg PO Q6H PRN #20 tablet 03/20/22 Ondansetron Odt [Zofran] 4 mg TL Q6H PRN #10 tablet 03/20/22 - Allergies Allergies/Adverse Reactions: Allergies Allergy/AdvReac Type Severity Reaction Status Date / Time morphine Allergy Respiratory Verified 10/18/21 08:00 - Social History Does the pt smoke?: No Smoking Status: Never smoker Does the pt drink ETOH?: No Does the pt have substance abuse?: No - Immunizations Immunizations are current?: Yes - POLST Patient has POLST: No PD ED PE NORMAL - Vitals Vital signs reviewed: Yes - General General: Alert and oriented X 3, No acute distress - HEENT HEENT: Moist mucous membranes - Neck Neck: Supple, no meningeal sign - Cardiac Cardiac: RRR, Strong equal pulses - Respiratory Respiratory: No respiratory distress, Clear bilaterally - Abdomen Abdomen: Soft, Non tender, Non distended - Back Back: No spinal TTP (No midline tenderness to palpation or percussion. No step- off or deformity. 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 Normal great toe extension bilaterally. no saddle anesthesia) Eye Opening: Spontaneous Motor: Obeys Commands Verbal: Oriented GCS Score: 15 - Psych Psych: Normal mood, Normal affect Results - Vitals Vitals: Vital Signs - 24 hr 03/20/22 11:52 Temperature 37.2 C Heart Rate 66 Respiratory 18 Rate Blood Pressure 154/97 H O2 Saturation 100 Oxygen O2 Source Room air PD MEDICAL DECISION MAKING - ED course Complexity details: re-evaluated patient, considered differential (No cauda equina, no spinal epidural abscess, no fracture, no aortic dissection or evidence of aneursym rupture), d/w patient ED course: Patient is a 51-year-old female who presents to the emergency department with acute on chronic back pain. She was given a dose of Toradol, Dilaudid, Zofran, Decadron. Will place on steroids for home. Will place on pain medication as well. We will have her follow-up with her doctor for further care. No evidence of cauda equina, epidural abscess. No indication for emergent imaging. No focal neurological Deficits. Patient counseled regarding signs and symptoms for which I believe and urgent re-evaluation would be necessary. Patient with good understanding of and agreement to plan and is comfortable going home at this time This document was made in part using voice recognition software. While efforts are made to proofread this document, sound alike and grammatical errors may occur. Departure - Departure Disposition: Home, Self Care Clinical Impression: Back pain Qualifiers: Back pain location: low back pain Chronicity: acute Back pain laterality: bilateral Sciatica presence: without sciatica Qualified Code(s): M54.50 - Low back pain, unspecified Condition: Good Instructions: ED Neck Back Pain General Follow-Up: Caitlyn Sims ARNP [Primary Care Provider] - Within 1 week Prescriptions: HYDROmorphone [Dilaudid] 2 mg PO Q6H PRN #12 tablet PRN Reason: back pain Ketorolac [Toradol] 10 mg PO Q6H PRN #20 tablet PRN Reason: back pain Ondansetron Odt [Zofran] 4 mg TL Q6H PRN #10 tablet PRN Reason: Nausea / Vomiting Comments: Please follow-up with your doctor for further care. Follow-up with your orthopedist tomorrow as scheduled. Please return if you worsen. Your prescriptions were sent to [facility] in [place]. I am prescribing a short course of narcotic pain medication for you. These are potentially dangerous and addictive medications that should be used carefully. These medications may constipate you. Take an zxfp-cqu-blbwddg stool softener (docusate) twice daily with plenty of water while taking these medications. If you go 24 hours without a bowel movement, take lstg-qdk-ejshvil miralax, per package instructions. Do not drink or drive while taking these medications. If you received narcotic or sedating medications while in the emergency department, do not drive for 24 hours. Store this medication in a safe, secure place and out of reach of children. It is a violation of federal law to give or sell this medication to another person or to use in a manner other than prescribed. The ED will not refill narcotic prescriptions, including prescriptions lost or stolen. To dispose of unwanted medications: 1. [facility] at [address] in [place] has a medication drop box. They accept prescription medications (in pill form) Sunday through Sunday 9:00 a.m. to 5:00 p.m. 2. The [facility] accepts prescription medications (in pill form only) for disposal year round. Call for more information. 3. Contact the [facility] for the next [facility] sponsored prescription drug collection event. , [phone], or [phone];
== END 2022-03-20 15:55 | disposition home or self-care (01) ==
LOC: ED 11:37
DX: M54.50 Low back pain, unspecified (principal); G89.29 Other chronic pain
CPT/HCPCS: 96372; 99283; 99284; A9270; J1170; Q0162

== ENCOUNTER 2022-04-17 11:13 | Outpatient (CLI) | payer OTHER, MEDICAID ==
--- NOTE | 2022-04-17 15:14 | SLEEP CARE CONSULTATION ---
Information from patient questionnaire entered by Quiana Alatorre. I have reviewed and concur with the information entered by Quiana Alatorre. This document represents the service I personally performed and the decisions made by me, Mynor Rao MD, [facility]. History of Present Illness Service Date and Time: 04/17/2022 1113 Reason for Visit: New patient Chief Complaint: reports: Insomnia, Excessive daytime sleepiness, Fatigue, Frequent awakenings at night Date of Onset: 2YRS Usual bedtime: 7PM Snores at night: No Observed to quit breathing while asleep: No Sleeps alone due to snoring: No Number of times waking at night: 2-3 Reasons for waking at night: reports: Bathroom, Other (NOISE AND UNKNOWN REASONS TROUBLE FALLING BACK TO SLEEP ) Toss, Turn, or Twitch while sleeping: Yes Recalls having dreams: Yes Usually gets out of bed at: 5-630AM Feels refreshed in the morning: No Morning headache: Yes (RESOLVES ONLY AFTER TAKING TYLENOL) Sleepy or fatigued during the day: Yes Ever fallen asleep while driving: Yes Takes day naps: No Dreams during day naps: No Prior sleep studies: Yes ([place], [place] 2007) Additional HPI information: I have the pleasure of seeing Ms. Robertson today regarding the possibility of her having obstructive sleep apnea. As you know, she is a 51-year-old lady who complains of frequent awakenings and fatigue. She had a sleep study in [place], [place] in 2007 that showed severe obstructive sleep apnea-hypopnea. She then had a gastric bypass surgery and lost 160 lbs. She was never retested. Recently, she gained back 40 lbs. and wonders if she now has obstructive sleep apnea-hypopnea. She does not know if she snores because she sleeps alone. She is tired but not particularly sleepy. Her [place] Sleepiness Scale score is 9. 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 Patient is Single and lives in . Have you smoked in the past 12 months: No Alcohol use: No Caffeine use: Yes Caffeine amount and frequency: 3CUPS NO CAFFINE AFTER 130-2PM Family History Family history of sleep disordered breathing: Yes Family Hx Sleep Apnea: Father: Snoring, Sibling: Snoring Allergies and Home Medications Known drug allergies: Yes (MORPHINE/OPIOIDS ) Drug allergies reviewed: Yes Home medication list reviewed: Yes Allergy and home medication list: Allergies morphine Allergy (Verified 10/18/21 08:00) Respiratory reports throat itching and tightness Review of Systems Review of systems same as previous: Yes Weight gain over past 5 years: 40 Cardiovascular: reports: high blood pressure Neurological: reports: headaches, other (MIGRAINS ) Psychiatric: reports: anxiety, depression Musculoskeletal: reports: joint pain, back pain, muscle pain or cramping, other (SPINAL STENOSIS ) Physical Exam Vital signs obtained and entered by: QUIANA Price MA Blood Pressure: 128/78 (LEFT ARM) Cuff size: regular Heart Rate: 78 O2 Saturation: 96 Height: 5 ft Weight: 181 lb 9.6 oz Body Mass Index: 35.4 BMI Classification: Obese Neck circumference: 14.25 Mood/affect: Normal HEENT: No craniofacial malformation Nostrils: patent to airflow Turbinates: normal Septum: deviated right Mouth and throat: narrow oropharynx Soft palate: long Hard palate: normal Uvula: normal Uvula visualization: 50% Mallampati Class II Tongue: normal in size Tonsils: small Chin and jaw: normal size and position Neck: normal w/o lymphadenopathy or thyromegaly Heart: regular rate and rhythm Lungs: clear bilaterally Extremities: no edema or clubbing Neurologic: intact Impression and Plan IMPRESSION: 1. Obstructive Sleep Apnea-Hypopnea Syndrome, as previously diagnosed but possibly cured with 100+ lb weight loss. Because of some weight regain and her feeling tired again, I will order an in-laboratory polysomnography to reassess the sleep-related breathing disorder. Plan: 1. Schedule an in-laboratory polysomnography. 2. Avoid long distance driving or when feeling sleepy. 3. Avoid alcohol, sedative and muscle relaxant around bedtime. 4. Attempt to lose weight. 5. Return for follow up after the sleep study. Follow up with Sleep Care in: 1-2 months Follow up recommended for: Weight management Visit Type: In Office Time Spent with Patient (minutes): 15 Provider Statement: I spent 100% of the Face to Face Visit with the patient with greater than 50% spent counseling the patient and coordination of care.
[2022-04-17 15:15] VITALS: BP 128/78
== END 2022-04-17 11:14 | disposition home or self-care (01) ==
LOC: SC 11:13
PROVIDERS: ATTEND Internal Medicine Pulmonary Disease
DX: G47.33 Obstructive sleep apnea (adult) (pediatric) (principal); E66.9 Obesity, unspecified; Z68.35 Body mass index [BMI] 35.0-35.9, adult
CPT/HCPCS: 99202; 99212

== ENCOUNTER 2022-05-30 20:03 | Outpatient (CLI) | payer MEDICAID | END 2022-05-30 20:04 | disposition home or self-care (01) | LOC: SC 20:03 | PROVIDERS: ATTEND Internal Medicine Pulmonary Disease | DX: G47.61 Periodic limb movement disorder (principal) | CPT/HCPCS: 95810 ==

== ENCOUNTER 2022-06-09 10:54 | Emergency (ER) | payer MEDICAID ==
[2022-06-09] MEDS ORDERED: DEXAMETHASONE 10 MG/ML VIAL PO STA (11:25)
[2022-06-09] MEDS ORDERED: CHERRY SYRUP 10 ML UDC PO ONE (11:25)
[2022-06-09] MEDS ORDERED: KETOROLAC 30 MG/ML VIAL IM STA (11:26)
[2022-06-09] MEDS ORDERED: ONDANSETRON ODT 4 MG TABLET TL STA (11:26)
[2022-06-09] MEDS ORDERED: HYDROmorphone 1 MG/ML CARPUJECT IM STA (11:26)
--- NOTE | 2022-06-09 11:29 | ED Physician Documentation ---
PD HPI BACK PAIN - Stated complaint Stated Complaint: BACK PX - Chief complaint Chief Complaint: Back Pain - History obtained from History obtained from: Patient - History of Present Illness Timing - onset: How many days ago (3) Timing - duration: Days (3) Timing - details: Gradual onset, Still present, Waxing and waning Location: Lower, Right Quality: Pain, Spasm, Sharp, Similar to prior episodes Associated symptoms: No: Fever, Weakness, Numbness, Incontinent of urine, Unable to urinate, Hematuria, Incontinent of stool Improves with: Rest, Position, Meds Worsened by: Movement Contributing factors: Lifting, Twisting Similar symptoms before: Diagnosis (spinal stenosis/sciatica) Recently seen: Other (has an appointment for injection in 3 days.) - Additional information Additional information: 51-year-old Mariah Robertson has a long history of spinal stenosis 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 She does not recall any heavy lifting to have incited a worsening in her in her symptoms but this has happened. She has bed problems all along and is in the process of getting ready to have injections done in 3 days time. She has been unable to sleep the past 2 nights. She does have allergy to oxycodone with itching and hydrocodone with hives as well as morphine. She has previously been prescribed oral Dilaudid which has worked for her. She does state that anti-inflammatories have helped her as well. She states that when the pain comes on it will be strong enough that will cause her some nausea and she is wondering if she can get some medication for nausea. She does not otherwise feel ill. Review of Systems Constitutional: denies: Fever Eyes: denies: Decreased vision Ears: denies: Ear pain Nose: denies: Congestion Throat: denies: Sore throat Respiratory: denies: Cough GI: reports: Nausea. 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: Other : None HEENT: None Psych: Depression, Anxiety Musculoskeletal: Fatigue Derm: Eczema - Past Surgical History Past Surgical History: Yes General: Cholecystectomy, Gastric surgery /LOAD TALLIER: section, Hysterectomy, LEEP (Cervical surgery) - Present Medications Home Medications: Ambulatory Orders Medication Instructions Recorded Confirmed Cetirizine [ZyrTEC] 10 mg PO BID #20 tablet 10/18/21 04/17/22 Meloxicam [Mobic] 7.5 mg PO BID 10 Days #14 tablet 10/18/21 04/17/22 Meloxicam, Submicronized 15 mg PO DAILY PRN 10/18/21 04/17/22 [Meloxicam] oxyCODONE [Roxicodone] 5 mg PO Q6H PRN #15 tablet 10/18/21 04/17/22 HYDROmorphone [Dilaudid] 2 mg PO Q6H PRN #12 tablet 03/20/22 04/17/22 Ketorolac [Toradol] 10 mg PO Q6H PRN #20 tablet 03/20/22 04/17/22 Ondansetron Odt [Zofran] 4 mg TL Q6H PRN #10 tablet 03/20/22 04/17/22 HYDROmorphone [Dilaudid] 2 mg PO Q6H PRN #12 tablet 06/09/22 Meloxicam [Mobic] 7.5 mg PO BID PRN #20 tablet 06/09/22 Ondansetron Odt [Zofran] 4 mg TL Q6H PRN #10 tablet 06/09/22 - Allergies Allergies/Adverse Reactions: Allergies Allergy/AdvReac Type Severity Reaction Status Date / Time morphine Allergy Respiratory Verified 04/17/22 11:25 opiods Allergy Unknown Uncoded 06/09/22 11:08 - Social History Does the pt smoke?: No Smoking Status: Never smoker Does the pt drink ETOH?: No Does the pt have substance abuse?: No - Immunizations Immunizations are current?: Yes - POLST Patient has POLST: No PD ED PE NORMAL - Vitals Vital signs reviewed: Yes (hypertensive ) - General General: Alert and oriented X 3, No acute distress, Well developed/nourished - HEENT HEENT: Atraumatic, PERRL, EOMI - Respiratory Respiratory: No respiratory distress - Back Back: No CVA TTP, No spinal TTP, Other (point tenderness to the lower lumbar paraspinous muscles on the right side extending into the sciatic notch. 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 She does not have any numbness or weakness associated with this. Today we are providing pain management for the patient. She has follow-up for injection in 3 days time. We provided her with oral dexamethasone, IM Toradol, IM Dilaudid and TL ondansetron. Departure - Departure Disposition: Home, Self Care Clinical Impression: Sciatica Qualifiers: Laterality: left Qualified Code(s): M54.32 - Sciatica, left side Condition: Stable Instructions: ED Sciatica Follow-Up: Caitlyn Sims ARNP [Primary Care Provider] - Prescriptions: HYDROmorphone [Dilaudid] 2 mg PO Q6H PRN #12 tablet PRN Reason: Pain Meloxicam [Mobic] 7.5 mg PO BID PRN #20 tablet PRN Reason: pain Ondansetron Odt [Zofran] 4 mg TL Q6H PRN #10 tablet PRN Reason: Nausea / Vomiting Comments: Mariah, today it looks like your back pain is out of control and we are providing some acute pain relief. Follow up as planned for your injection on Sunday. Medications for pain and nausea have been e-scribed to [facility] in [place].
[2022-06-09 12:00] VITALS: BP 140/91
== END 2022-06-09 12:13 | disposition home or self-care (01) ==
LOC: ED 10:54
DX: M54.32 Sciatica, left side (principal)
CPT/HCPCS: 96372; 99283; A9270; J1170; Q0162

== ENCOUNTER 2022-10-16 15:45 | Outpatient (CLI) | payer MEDICAID, OTHER ==
[2022-10-16 20:30] LABS: BASOPHILS % (AUTO) 0.5 %; EOSINOPHILS # (AUTO) 0.1 10^3/uL (0.0-0.7); EOSINOPHILS % (AUTO) 1.2 %; HCT - HEMATOCRIT 35.1 % (37.0-47.0); HGB - HEMOGLOBIN 10.7 g/dL (12.0-16.0); LYMPHOCYTES # (AUTO) 1.9 10^3/uL (1.5-3.5); LYMPHOCYTES % (AUTO) 33.3 %; MEAN CORPUSCULAR HEMOGLOBIN 23.9 pg (27.0-31.0); MEAN CORPUSCULAR HGB CONC 30.5 g/dL (32.0-36.0); MEAN CORPUSCULAR VOLUME 78.5 fL (81.0-99.0); MEAN PLATELET VOLUME 10.6 fL (7.9-10.8); MONOCYTES # (AUTO) 0.3 10^3/uL (0.0-1.0); MONOCYTES % (AUTO) 5.4 %; NEUTROPHILS # (AUTO) 3.4 10^3/uL (1.5-6.6); NEUTROPHILS % (AUTO) 59.4 %; PLT - PLATELET COUNT 383 10^3/uL (130-450); RED BLOOD COUNT 4.47 10^6/uL (4.20-5.40); WHITE BLOOD COUNT 5.7 x10^3/uL (4.8-10.8)
[2022-10-16 20:40] LABS: ALBUMIN 3.7 g/dL (3.2-5.5); BILIRUBIN,TOTAL 0.3 mg/dL (0.2-1.0); CALCIUM 9.1 mg/dL (8.5-10.3); CREATININE 0.5 mg/dL (0.4-1.0); POTASSIUM 3.5 mmol/L (3.5-5.0); TOTAL PROTEIN 7.5 g/dL (6.7-8.2)
== END 2022-10-16 16:00 | disposition home or self-care (01) ==
LOC: LAB.N 15:45
PROVIDERS: ATTEND Family Medicine
DX: R10.9 Unspecified abdominal pain (principal)
CPT/HCPCS: 36415; 80053; 85025

== ENCOUNTER 2022-10-19 13:46 | Outpatient (CLI) | payer MEDICAID ==
[2022-10-19] MEDS ORDERED: iohexoL-300 100 ML VIAL ONE (14:04)
[2022-10-19] MEDS ORDERED: DIATRIZOATE MEGLU/DIATRIZO SOD 30 ML BOTTLE PO ONE ×2 (14:04→15:52)
[2022-10-19] MEDS ORDERED: iohexoL-300 100 ML VIAL IVP ONE (15:53)
--- NOTE | 2022-10-19 16:48 | CT Report ---
PROCEDURE: ABDOMEN/PELVIS W INDICATIONS: ABD PAIN CONTRAST: 100mL Omni 300 TECHNIQUE: After the administration of IV and oral contrast, 5 mm thick sections acquired from the diaphragms to the symphysis. 5 mm thick coronal and sagittal reformats were acquired. For radiation dose reducti on, the following was used: automated exposure control, adjustment of mA and/or kV according to tiffanie ent size. COMPARISON: 10/18/2021 FINDINGS: Image quality: Good Lower chest: Postsurgical gastric bypass changes. Lung bases are unremarkable. Normal heart size. Solid organs: The liver is unremarkable. Gallbladder is absent. No pathologic dilation of the biliary tree along for postcholecystectomy state. No pancreatic ductal dilation. No splenomegaly. No adrenal nodules. No hydronephrosis. Vessels and lymph nodes: Main portal vein is patent. No abdominal aortic aneurysm or pathologic adeno jaye by size criteria. Bowel and peritoneum: There are gastric bypass changes. No pathologic dilation of small large bowel. No pathologic ascites or abscess. Normal appearance of the appendix Body wall: Unremarkable Pelvis: Bladder is unremarkable. Uterus is absent. Bones: No acute or suspicious osseous finding. There are degenerative changes. Anterolisthesis of L4 on L5, mild. Pelvic bone findings are better seen on recent CT. IMPRESSION: No acute abdominopelvic abnormality. Stable and likely chronic changes as above. Postsurgical gastric changes. Pelvic bone findings better seen on recent CT. Reviewed by: North Donnelly MD on 10/19/2022 4:47 PM PDT Approved by: North Donnelly MD on 10/19/2022 4:47 PM PDT Station ID: [id number]
== END 2022-10-19 13:47 | disposition home or self-care (01) ==
LOC: DI 13:46
PROVIDERS: ATTEND Family Medicine
DX: R10.9 Unspecified abdominal pain (principal)
CPT/HCPCS: 74177; Q9963; Q9967

== ENCOUNTER 2023-01-17 21:38 | Emergency (ER) | payer MEDICAID ==
--- NOTE | 2023-01-17 21:59 | ED Physician Documentation ---
History of Present Illness - Stated complaint Stated Complaint: SYNCOPE - Chief complaint Chief Complaint: Neuro - History obtained from History obtained from: Patient, Family (daughter) - Additonal information Additional information: 52yF with history of depression and insomnia on prozac and ambien p/w syncopal episode X 2 tonight witnessed by daughter with +HT. denies blood thinner or AC use. she states she did not eat or drink much today and only had food at breakfast. patient states she took her nightly 10mg ambien which normally does make her drowsy and dizzy. daughter states she was walking unsteadily then appeared to collapse on two discrete episodes, prompting call to ems. patient was hypoglycemic on scene, prompting administration of oral glucose and IV D10. patient otherwise states she has been feeling normally and didn't eat because she was too busy today. 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 : 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 HEENT: None Psych: Depression, Anxiety Musculoskeletal: Fatigue Derm: Eczema - Past Surgical History Past Surgical History: Yes General: Cholecystectomy, Gastric surgery /IT TECHNICAL ARCHITECT: section, Hysterectomy, LEEP (Cervical surgery) - Present Medications Home Medications: Ambulatory Orders Medication Instructions Recorded Confirmed Cetirizine [ZyrTEC] 10 mg PO BID #20 tablet 10/18/21 04/17/22 Meloxicam [Mobic] 7.5 mg PO BID 10 Days #14 tablet 10/18/21 04/17/22 Meloxicam, Submicronized 15 mg PO DAILY PRN 10/18/21 04/17/22 [Meloxicam] oxyCODONE [Roxicodone] 5 mg PO Q6H PRN #15 tablet 10/18/21 04/17/22 HYDROmorphone [Dilaudid] 2 mg PO Q6H PRN #12 tablet 03/20/22 04/17/22 Ketorolac [Toradol] 10 mg PO Q6H PRN #20 tablet 03/20/22 04/17/22 Ondansetron Odt [Zofran] 4 mg TL Q6H PRN #10 tablet 03/20/22 04/17/22 HYDROmorphone [Dilaudid] 2 mg PO Q6H PRN #12 tablet 06/09/22 Meloxicam [Mobic] 7.5 mg PO BID PRN #20 tablet 06/09/22 Ondansetron Odt [Zofran] 4 mg TL Q6H PRN #10 tablet 06/09/22 - Allergies Allergies/Adverse Reactions: Allergies Allergy/AdvReac Type Severity Reaction Status Date / Time morphine Allergy Respiratory Verified 04/17/22 11:25 opiods Allergy Unknown Uncoded 06/09/22 11:08 - Social History Does the pt smoke?: No Smoking Status: Never smoker Does the pt drink ETOH?: No Does the pt have substance abuse?: No - Immunizations Immunizations are current?: Yes - POLST Patient has POLST: No PD ED PE NORMAL - Vitals Vital signs reviewed: Yes - General General: Alert and oriented X 3, No acute distress, Well developed/nourished - HEENT HEENT: Atraumatic, PERRL, EOMI, Moist mucous membranes, Pharynx benign - Neck Neck: Supple, no meningeal sign - Cardiac Cardiac: RRR - Respiratory Respiratory: No respiratory distress, Clear bilaterally - Abdomen Abdomen: Non tender, Non distended - Derm Derm: Normal color, Warm and dry - Extremities Extremities: No deformity - Neuro Neuro: Alert and oriented X 3 Eye Opening: Spontaneous Motor: Obeys Commands Verbal: Oriented GCS Score: 15 - Psych Psych: Normal mood Results - Vitals Vitals: Vital Signs - 24 hr 01/17/23 01/17/23 01/18/23 21:47 22:46 00:22 Temperature 36.7 C Heart Rate 55 L 53 L 53 L Respiratory 16 16 14 Rate Blood Pressure 90/53 L 89/52 L 91/59 L O2 Saturation 96 98 97 01/18/23 01:25 Temperature Heart Rate 56 L Respiratory 16 Rate Blood Pressure 98/59 L O2 Saturation 98 Oxygen O2 Source Room air - EKG (time done) 8 EKG releavant findings:: EKG personally interpreted by author of this note. Relevant findings are: Rate: Rate (enter#) (47) Rhythm: Sinus bradycardia Gaston: Normal Intervals: Normal MO QRS: Normal Ischemia: Normal ST segments - Labs Labs: Laboratory Tests 01/17/23 01/17/23 01/17/23 22:03 22:03 22:03 WBC 5.7 RBC 3.61 L Hgb 8.5 L Hct 28.4 L MCV 78.7 L MCH 23.5 L MCHC 29.9 L RDW 17.3 H Plt Count 296 MPV 9.8 Neut # (Auto) 3.7 Lymph # (Auto) 1.5 Day # (Auto) 0.4 Eos # (Auto) 0.1 Baso # (Auto) 0.0 Absolute Nucleated RBC 0.00 Nucleated RBC % 0.0 Sodium 140 Potassium 3.7 Chloride 111 Carbon Dioxide 24 Anion Gap 5.0 L BUN 14 Creatinine 0.6 Estimated GFR (MDRD) 106 Glucose 41 L* POC Whole Bld Glucose Calcium 8.2 L Total Bilirubin 0.4 AST 17 ALT 11 Alkaline Phosphatase 64 Total Protein 5.9 L Albumin 3.4 Globulin 2.5 Albumin/Globulin Ratio 1.4 Lipase 49 TSH 4.97 01/17/23 01/18/23 22:11 00:21 WBC RBC Hgb Hct MCV MCH MCHC RDW Plt Count MPV Neut # (Auto) Lymph # (Auto) Day # (Auto) Eos # (Auto) Baso # (Auto) Absolute Nucleated RBC Nucleated RBC % Sodium Potassium Chloride Carbon Dioxide Anion Gap BUN Creatinine Estimated GFR (MDRD) Glucose POC Whole Bld Glucose 217 H 98 Calcium Total Bilirubin AST ALT Alkaline Phosphatase Total Protein Albumin Globulin Albumin/Globulin Ratio Lipase TSH PD Medical Decision Making - ED course ED course: 52yF presents to the ED with syncope and hypoglycemia. Patient becomes lightheaded with standing on my exam. glucose 58 in ED on arrival. 1 amp D50 and 1 L NS ordered in addition to head CT, CBC, abdominal panel, cardiac monitoring, ekg. will reevaluate. ekg sinus bradycardia. tsh normal. CT head unremarkable. Lab work of note included hemoglobin of 8.5, down from 10.7 on 10/16/2022. Patient denies rectal bleeding and ANITHA is negative for acute blood. Advised outpatient follow-up with her primary care provider regarding this. Patient had normal fingerstick glucose after eating a meal and I advised her that she needs to eat regular meals throughout the day and not fast as she had been doing yesterday. Return precautions were given. Departure - Departure Disposition: 01 Home, Self Care Clinical Impression: Dizziness, Fainting, Head injury, Anemia Condition: Stable Instructions: Hypoglycemia Comments: You were seen in the emergency department for fainting episodes. You have a heart rate that is slightly lower than average, your blood pressure is a little low, and you are showing signs of anemia. Your blood sugar was low as well. You need to eat regular meals daily to stay healthy. Please follow-up with your primary care provider about these findings and return to the emergency department if you have any new or worsening symptoms or other concerns. Forms: PCP List
[2023-01-17] MEDS: SODIUM CHLORIDE 0.9% 1,000 ML IV STA (22:01)
[2023-01-17] MEDS: DEXTROSE 50% ABBOJECT 25 GM/50 ML SYRINGE IVP STA (22:01)
[2023-01-17 22:09] LABS: BASOPHILS % (AUTO) 0.3 %; EOSINOPHILS # (AUTO) 0.1 10^3/uL (0.0-0.7); HCT - HEMATOCRIT 28.4 % (37.0-47.0); HGB - HEMOGLOBIN 8.5 g/dL (12.0-16.0); LYMPHOCYTES # (AUTO) 1.5 10^3/uL (1.5-3.5); LYMPHOCYTES % (AUTO) 26.9 %; MEAN CORPUSCULAR HEMOGLOBIN 23.5 pg (27.0-31.0); MEAN CORPUSCULAR HGB CONC 29.9 g/dL (32.0-36.0); MEAN CORPUSCULAR VOLUME 78.7 fL (81.0-99.0); MEAN PLATELET VOLUME 9.8 fL (7.9-10.8); MONOCYTES # (AUTO) 0.4 10^3/uL (0.0-1.0); MONOCYTES % (AUTO) 7.5 %; NEUTROPHILS # (AUTO) 3.7 10^3/uL (1.5-6.6); NEUTROPHILS % (AUTO) 64.1 %; PLT - PLATELET COUNT 296 10^3/uL (130-450); RED BLOOD COUNT 3.61 10^6/uL (4.20-5.40); RED CELL DISTRIBUTION WIDTH 17.3 % (12.0-15.0); WHITE BLOOD COUNT 5.7 x10^3/uL (4.8-10.8)
[2023-01-17 22:26] LABS: ALBUMIN 3.4 g/dL (3.2-5.5); ALBUMIN/GLOBULIN RATIO 1.4 (1.0-2.2); BILIRUBIN,TOTAL 0.4 mg/dL (0.2-1.0); CALCIUM 8.2 mg/dL (8.5-10.3); CREATININE 0.6 mg/dL (0.4-1.0); POTASSIUM 3.7 mmol/L (3.5-5.0); TOTAL PROTEIN 5.9 g/dL (6.7-8.2)
--- NOTE | 2023-01-17 23:27 | CT Report ---
PROCEDURE: HEAD WO INDICATIONS: +HT X 2 TECHNIQUE: Noncontrast 4.5 mm thick angled axial sections acquired from the foramen magnum to the vertex. For r adiation dose reduction, the following was used: automated exposure control, adjustment of mA and/or kV according to patient size. COMPARISON: CT head 05/30/2021. FINDINGS: Image quality: Excellent. CSF spaces: Basal cisterns are patent. No extra-axial fluid collections. Ventricles are normal in size and shape. Brain: No intracranial hemorrhage, mass, or mass effect. Capps-white matter interface appears preser daryn. Skull and face: Calvarium and visualized facial bones are intact, without suspicious lesions. Sinuses: Visualized sinuses and mastoids are clear. IMPRESSION: 1. No acute intracranial abnormality. Reviewed by: Naeem Royal MD on 01/17/2023 11:26 PM PDT Approved by: Naeem Royal MD on 01/17/2023 11:26 PM PDT Station ID: [id number]
[2023-01-18 01:34] VITALS: O2SAT 98
[2023-01-18 03:15] VITALS: BP 94/61
== END 2023-01-18 03:24 | disposition home or self-care (01) ==
LOC: EDUNIT# → ED 21:38
DX: S09.90XA Unspecified injury of head, initial encounter (principal); W19.XXXA Unspecified fall, initial encounter; R55 Syncope and collapse
CPT/HCPCS: 36415; 80053; 82272; 82274; 83690; 84443; 85025; 93005; 96374; 99284

== ENCOUNTER 2023-05-12 16:40 | Outpatient (CLI) | payer MEDICAID | END 2023-05-12 16:41 | disposition short-term general hospital (02) | LOC: EMS 16:40 | DX: R10.13 Epigastric pain (principal); R11.2 Nausea with vomiting, unspecified; Z98.84 Bariatric surgery status | CPT/HCPCS: A0425; A0427; A0999 ==

== ENCOUNTER 2023-12-26 13:29 | Outpatient (CLI) | payer MEDICAID ==
[2023-12-26 17:54] LABS: BASOPHILS % (AUTO) 0.3 %; EOSINOPHILS # (AUTO) 0.1 10^3/uL (0.0-0.7); EOSINOPHILS % (AUTO) 0.8 %; HCT - HEMATOCRIT 27.6 % (37.0-47.0); HGB - HEMOGLOBIN 8.2 g/dL (12.0-16.0); LYMPHOCYTES # (AUTO) 1.7 10^3/uL (1.5-3.5); LYMPHOCYTES % (AUTO) 28.1 %; MEAN CORPUSCULAR HGB CONC 29.7 g/dL (32.0-36.0); MEAN CORPUSCULAR VOLUME 70.8 fL (81.0-99.0); MEAN PLATELET VOLUME 10.1 fL (7.9-10.8); MONOCYTES # (AUTO) 0.3 10^3/uL (0.0-1.0); MONOCYTES % (AUTO) 5.4 %; NEUTROPHILS # (AUTO) 3.9 10^3/uL (1.5-6.6); NEUTROPHILS % (AUTO) 65.1 %; PLT - PLATELET COUNT 420 10^3/uL (130-450); RED CELL DISTRIBUTION WIDTH 17.4 % (12.0-15.0); WHITE BLOOD COUNT 5.9 x10^3/uL (4.8-10.8)
[2023-12-26 18:00] LABS: ALBUMIN 3.8 g/dL (3.2-5.5); ALBUMIN/GLOBULIN RATIO 1.3 (1.0-2.2); ALKALINE PHOSPHATASE 86 IU/L (42-121); ALT ALANINE AMINOTRANSFERASE 10 IU/L (10-60); AST ASPARTATE AMINOTRANSFERASE 14 IU/L (10-42); BILIRUBIN,TOTAL 0.3 mg/dL (0.2-1.0); BUN - BLOOD UREA NITROGEN 12 mg/dL (6-20); CALCIUM 9.3 mg/dL (8.5-10.3); CARBON DIOXIDE - CO2 24 mmol/L (21-32); CHLORIDE 107 mmol/L (101-111); CHOL/HDL RATIO 2.1 (<4.4); CHOLESTEROL 164 mg/dL; CREATININE 0.4 mg/dL (0.6-1.3); CRP - C-REACTIVE PROTEIN < 0.5 mg/dL (<0.5); GFR - MDRD 168 (>89); GLUCOSE 95 mg/dL (74-104); HDL CHOLESTEROL 79 mg/dL; LDL CHOLESTEROL,CALCULATED 76 mg/dL; MAGNESIUM 1.6 mg/dL (1.7-2.3); POTASSIUM 4.1 mmol/L (3.5-4.5); SODIUM 138 mmol/L (135-145); TOTAL PROTEIN 6.8 g/dL (6.4-8.9); TRIGLYCERIDES 45 mg/dL; VLDL CHOLESTEROL 9 mg/dL
[2023-12-26 18:15] LABS: THYROID STIMULATING HORMONE 1.63 uIU/mL (0.34-5.60)
[2023-12-26 20:51] LABS: ESTIMATED AVERAGE GLUCOSE 111 mg/dL (70-100); HEMOGLOBIN A1c% 5.5 % (4.27-6.07)
== END 2023-12-26 13:30 | disposition home or self-care (01) ==
LOC: LAB.N 13:29
PROVIDERS: ATTEND Nurse Practitioner Family
DX: M48.062 Spinal stenosis, lumbar region with neurogenic claudication (principal); R63.4 Abnormal weight loss
CPT/HCPCS: 36415; 80053; 80061; 82607; 82746; 83036; 83721; 83735; 84443; 85025; 85651; 86140